=== PATIENT | female | born 1990 | race Caucasian/White ===

== ENCOUNTER 2018-05-10 07:32 | Emergency (ER) | payer OTHER, MEDICAID, SELFPAY ==
[2018-05-10 07:39] VITALS: BP 144/96; PULSE 90; RESP 16; TEMP 36.9; O2SAT 100; BMI 23.0
--- NOTE | 2018-05-10 08:00 | ED.FEMALEGU ---
HPI - Female Genitourinary General Chief complaint: Urogenital-Female Stated complaint: has yeast infection, meds have inflamed area Time Seen by Provider: 05/10/18 07:49 Source: patient Mode of arrival: ambulatory Limitations: no limitations History of Present Illness HPI Narrative: This is a 28-year-old female comes to the emergency department with complaint of painful urination, patient is having urgency, frequency as well as dysuria. She denies any abdominal or suprapubic pain. She denies any flank pain. No fevers or chills. No nausea or vomiting. no other GI symptoms. she is not having any vaginal bleeding or discharge. patient had urinary tract infection as a child but does not get them regularly. Related Data Previous Rx's Medication Instructions Recorded nitrofurantoin monohyd/m-cryst 100 mg PO BID #10 cap 05/10/18 [Macrobid] Allergies Allergy/AdvReac Type Severity Reaction Status Date / Time No Known Drug Allergies Allergy Verified 05/10/18 07:39 Review of Systems Review of Systems ROS Unobtainable: All systems reviewed & are unremarkable except as noted in HPI and below Constitutional Denies chills and Denies fever(s) Gastrointestinal Gastrointestinal: Denies abdominal pain, Denies nausea and Denies vomiting Genitourinary Reports as per HPI, Denies abnormal vaginal bleeding, Denies hematuria, Reports urinary frequency, Denies difficulty voiding, Reports dysuria, Denies flank pain, Denies urinary incontinence, Denies urinary hesitancy, Reports urinary urgency, Denies vaginal discharge and Denies vaginal odor [facility] Social History Smoking Status: Never smoker Social History Smoking Status: Never smoker Exam Narrative Exam Narrative: GENERAL: Alert and oriented x three, well-nourished, well-appearing female in distress. HEENT: Head normocephalic, atraumatic, EOMI, pupils reactive, face symmetric, moist mucous membranes NECK: Supple, full range of motion CARDIOVASCULAR: Regular rate and rhythm without murmurs, rubs or gallops. RESPIRATORY: Breath sounds equal bilaterally, no wheezes rales or rhonchi. ABDOMEN: Soft, nontender. Normoactive bowel sounds all 4 quadrants. No guarding or rebound, rigidity, no mass : No CVA tenderness EXTREMITIES: Normal range of motion, no clubbing or edema. Neurovascularly intact NEUROLOGICAL: Cranial nerves II through XII grossly intact. Moving all extremities SKIN: Warm, dry, no petechiae, no rashes or lesions. Initial Vital Signs Initial Vital Signs: Vital Signs Temperature 98.5 F 05/10/18 07:39 Pulse Rate 90 05/10/18 07:39 Respiratory Rate 16 05/10/18 07:39 Blood Pressure 144/96 H 05/10/18 07:39 Pulse Oximetry 100 05/10/18 07:39 Course Orders Ordered: ED Orders 05/10/18 07:45 Urine Microscopic Stat Vital Signs - 8 hr 05/10/18 07:39 Temperature 98.5 F Pulse Rate 90 Respiratory Rate 16 Blood Pressure 144/96 H Pulse Oximetry 100 MDM - Female Genitourinary Lab Data Attestation: I reviewed the patient's lab results. Lab Results 05/10/18 Range/Units 07:45 Urine RBC 0-1/hpf (0-5/HPF) Urine WBC 1-5/hpf (0-5/HPF) Ur Squamous Epith Cells 0-1 /hpf Urine Bacteria Few (2-10) H (None) Ur Culture Indicated? Specimen cultured Point of Care Testing Test Results Negative Urine Dip Bedside Urine Glucose Negative Bedside Urine Bilirubin - Negative Bedside Urine Ketone - Negative Urine Specific [place] 1.030 Bedside Urine Occult Blood +/- Bedside Urine pH 6.0 Bedside Urine Protein - Negative Bedside Urine Urobilinogen - Negative Bedside Urine Nitrite - Negative Bedside Urine Leukocytes +++ 500 Esterase Discharge Plan Departure Patient Disposition: Home Clinical Impression: Urinary tract infection Qualifiers: Urinary tract infection type: acute cystitis Discharge Date/Time: 05/10/18 08:20 Interventions: ED Discharge Assessment Last Done: 05/10/18 08:20 Instructions: DI for Urinary Tract Infection (UTI) Activity Restrictions/Additional Instructions: Follow-up with primary care if your symptoms are not resolving in the next 5-7 days. Take antibiotics until completely gone. Take Pyridium 1 tablet every 8 hours as needed for symptoms. This will turn your urine bright orange. Return to the emergency department for fevers greater than 100.4, rapidly worsening symptoms new abdominal or flank pain, persistent vomiting, inability to urinate or other new or concerning symptoms. Prescriptions: New nitrofurantoin monohyd/m-cryst [Macrobid] 100 mg capsule 100 mg PO BID Qty: 10 RF: 0
[2018-05-10 08:07] LABS: RBC Urine 0-1/HPF (0-5/HPF); Squamous Epithelial Cell Urine 0-1 /HPF; WBC Urine 1-5/HPF (0-5/HPF)
[2018-05-10 08:08] LABS: Bacteria Urine Few (2-10); Culture Indicated Urine Specimen Cultured
== END 2018-05-10 08:20 | disposition home or self-care (01) ==
PROVIDERS: Emergency Provider Emergency Medicine
DX: N39.0 Urinary tract infection, site not specified (principal)
CPT/HCPCS: 81003; 81015; 81025; 87086; 99282; 99283